=== PATIENT | female | born 1950 | race Caucasian/White ===

== ENCOUNTER 2017-04-14 22:04 | Emergency (ER) | payer MEDICAID ==
[~2017-04-14] VITALS: Ht 167.6 cm; Wt 88.9 kg
[~2017-04-14 22:04] MED LIST: ACET325T14 PO; ALBU18HF; AMLO10TA4; ASPI-614; CARB100T3; CARB200T PO; CARV12.543; DIAZ5TAB PO; DICY10CA53 PO; DIGO125T; DIPH25CA61 PO; DIVA125T2; DOCU-131 PO; FLUT9.9S NAS; FURO-92; FURO-93 PO; HYDR-3307; LEVE500T54 PO; LITH300C PO; LORA-446 PO; METF500T4 PO; METO100T; METO25TA35 PO; NAPR500T4 PO; NITR0.4T28 SL; OMEP10CA2; OMEP40CA3; OXYC-307; PANT40TA3 PO; PHEN100C; POTA10TA11 PO; POTA25TA4; PROP10TA PO; PROP120C; QUET100T4 PO; RISP2TAB3 PO; SIMV10TA3; SIMV40TA3 PO; TRAM50TA2; WARF5TAB7 PO; [UNRECOGNIZED DRUG - CODE]
[2017-04-14 22:06] VITALS: BP 115/76
[2017-04-15] MEDS ORDERED: ONDANSETRON ODT 4 MG PO ONE (02:30)
[2017-04-15] MEDS ORDERED: ONDANSETRON ODT 4 MG ONE (02:58)
[2017-04-15 03:13] LABS: BASOPHILS # (AUTO) 0.01 x10^3/uL (0-0.1); BASOPHILS % (AUTO) 0 % (0-1); EOSINOPHILS # (AUTO) 0.11 x10^3/uL (0-0.4); EOSINOPHILS % (AUTO) 2 % (1-7); LYMPHOCYTES # (AUTO) 2.31 x10^3/uL (1-3.4); LYMPHOCYTES % (AUTO) 47 % (22-44); MD NO; MEAN CORPUSCULAR HEMOGLOBIN 30.2 pg (27.0-34.8); MEAN CORPUSCULAR HGB CONC 32.9 g/dL (32.4-35.8); MEAN CORPUSCULAR VOLUME 91.7 fL (80-100); MEAN PLATELET VOLUME 7.6 fL (7.4-10.4); MONOCYTES # (AUTO) 0.53 x10^3/uL (0.2-0.8); MONOCYTES % (AUTO) 11 % (2-9); NEUTROPHILS # (AUTO) 1.97 x10^3/uL (1.8-6.8); NEUTROPHILS % (AUTO) 40 % (42-75); PLATELET COUNT 242 x10^3/uL (130-400); RED BLOOD COUNT 3.98 x10^6/uL (3.82-5.3); RED CELL DISTRIBUTION WIDTH 14.5 % (9.6-15.2)
[2017-04-15 03:20] LABS: INTERNATIONAL NORMALIZED RATIO 1.01 (0.93-1.1); PROTHROMBIN TIME 10.4 Seconds (9.6-11.5)
[2017-04-15 03:24] LABS: ALBUMIN 3.1 g/dL (3.4-5.0); ANION GAP 7 mmol/L (5-15); CALCIUM 8.8 mg/dL (8.5-10.1); CHLORIDE 108 mmol/L (98-107)
[2017-04-15 03:25] LABS: CREATININE 0.88 mg/dL (0.55-1.02)
== END 2017-04-15 04:58 | disposition home or self-care (01) ==
LOC: ED 23:59
DX: S06.0X0A Concussion without loss of consciousness, initial encounter (principal); E11.9 Type 2 diabetes mellitus without complications; I48.2 Chronic atrial fibrillation; Z72.9 Problem related to lifestyle, unspecified; Z59.0 Homelessness; W19.XXXA Unspecified fall, initial encounter; Y93.89 Activity, other specified; Y99.8 Other external cause status; Y92.099 Unspecified place in other non-institutional residence as the place of occurrence of the external cause
CPT/HCPCS: 36415; 70450; 71045; 80048; 82040; 85025; 85610; 85730; 93005; 99285; Q0162

== ENCOUNTER 2017-09-26 16:03 | Emergency (ER) | payer SELFPAY ==
[~2017-09-26 16:03] MED LIST changes: -METF500T4 PO; +METF500T5 PO; +NAPR-685 PO; -NAPR500T4 PO; +WARF-36 PO; -WARF5TAB7 PO
== END 2017-09-26 16:07 | disposition left against medical advice (07) ==
LOC: ED 16:03
DX: M25.511 Pain in right shoulder (principal); Z53.21 Procedure and treatment not carried out due to patient leaving prior to being seen by health care provider